=== PATIENT | male | born 1940 | race Caucasian/White ===

== ENCOUNTER 2017-06-21 06:14 | Day surgery (SDC) | payer MEDICARE ==
[2017-06-21] MEDS ORDERED: LIDOCAINE 2% MDV (20MG/ML) 20ML VIAL IV ONE ×2 (12:51→13:07)
[2017-06-21] MEDS ORDERED: PROPOFOL 10 MG/ML VIAL IV ONE (12:51)
[2017-06-21] MEDS ORDERED: TETRACAINE HCL 0.5% 15 ML OPTH BTL OPTH ONE (13:07)
[2017-06-21] MEDS ORDERED: LIDOCAINE 1% MPF 100MG/10ML STERILE-PAK AMPULE IV ONE (13:07)
[2017-06-21] MEDS ORDERED: NEOMYCIN/POLY./DEXAM OPTH OINT OPTH ONE (13:07)
[2017-06-21] MEDS ORDERED: TETRACAINE HCL 0.5% OPTH 2ML SOLU OPTH ONE (13:07)
[2017-06-21] MEDS ORDERED: EPINEPHRINE 1 MG/ML AMPUL SQ ONE (13:07)
[2017-06-21] MEDS ORDERED: CIPROFLOXACIN HCL 0.0015 GM, PHENYLEPHRINE HCL 0.05 GM, KETOROLAC TROMETHAMINE 0.000625 GM MC ONE ×5 (13:15)
--- NOTE | 2017-06-22 07:56 | OP NOTE CHAMES ---
DATE OF PROCEDURE: 06/21/2017. PREOPERATIVE DIAGNOSIS: Nuclear sclerotic cataract, right eye. POSTOPERATIVE DIAGNOSIS: Nuclear sclerotic cataract, right eye. OPERATION: Phacoemulsification of cataractous lens with implantation of intraocular lens. LENS IMPLANT USED: Cr Model PCB00 + 24.0 diopters. COMPLICATIONS: None. PROCEDURE IN DETAIL: Following a retrobulbar and facial block, the patient was prepped and draped in the usual fashion for eye surgery. A lid speculum was placed in the right eye after which a 2.4 mm tunnel wound was placed at the temporal limbus and dissected into clear cornea. A paracentesis was placed at 2 oclock hours to the left and right of the initial incision and the chamber deepened with Viscoelastic. The keratome was then used to enter the anterior chamber after which the continuous circular capsulorrhexis was accomplished without difficulty using a bent needle and a Utrata forceps. Hydrodissection and hydrodelineation of the lens was performed after which the nucleus of the lens was removed using the Phaco handpiece in the [id number] technique. The residual cortical material was irrigated and aspirated from the eye after which the bag and chamber were re-examined. The bag was re-inflated with Viscoelastic and the intraocular lens injected into the capsular bag where it centered well. The Viscoelastic was then copiously irrigated and aspirated from the eye after which the temporal tunnel wound and paracentesis were hydrated and the wounds were examined. They were noted to be watertight. The lid speculum was removed from the eye and the eye patched and shielded. The patient was transferred to the recovery room in satisfactory condition and given an appointment to be reexamined in the clinic later today or as directed by Dr. Suarez. Remington Suarez M.D. Date & Time JOB NUMBER: [id number] MTDD
== END 2017-06-21 08:35 | disposition home or self-care (01) ==
LOC: SUR 06:14
PROVIDERS: ATTEND Ophthalmology
DX: H25.11 Age-related nuclear cataract, right eye (principal); I10 Essential (primary) hypertension; I50.9 Heart failure, unspecified; E78.00 Pure hypercholesterolemia, unspecified; Z79.01 Long term (current) use of anticoagulants
CPT/HCPCS: J0171; J3490

== ENCOUNTER 2019-01-09 12:37 | Day surgery (SDC) | payer MEDICARE ==
[2019-01-09] MEDS ORDERED: FENTANYL PF 100MCG/2ML VIAL IV ONE (12:38)
[2019-01-09] MEDS ORDERED: LIDOCAINE 2% MDV (20MG/ML) 20ML VIAL IV ONE (12:38)
[2019-01-09] MEDS ORDERED: PROPOFOL 10 MG/ML VIAL IV ONE (12:38)
--- NOTE | 2019-01-10 08:50 | Operative Note ---
OPERATION: 1. ESOPHAGOGASTRODUODENOSCOPY with biopsy. 2. COLONOSCOPY with random biopsy. PREOPERATIVE DIAGNOSES: 1. Watson's. 2. Diarrhea. POSTOPERATIVE DIAGNOSES: 1. Short-segment Watson's. 2. Hiatal hernia. 3. Sigmoid diverticulosis. 4. Normal colon. 5. Otherwise rule out microscopic colitis. PROCEDURE: After informed consent was obtained from the patient, he was placed in the left lateral decubitus position in the endoscopy suite, sedated and monitored by the department of anesthesia. A well-lubricated [id number] gastroscope was placed in the posterior oropharynx under direct visualization and passed to the proximal esophagus. The endoscope was advanced through the proximal, mid, and distal esophagus. There was irregularity of the squamocolumnar border and a small hiatal hernia. The subdiaphragmatic stomach demonstrated normal distensibility, normal rugal folds. The body, antrum, pylorus, duodenal bulb and sweep were unremarkable. J-turn views of the proximal stomach were unremarkable other than a small hiatal hernia being noted. The endoscope was straightened. GE junction biopsies were obtained. No excessive bleeding was noted. The endoscope was removed from the patient with no new findings noted. Digital rectal exam was unremarkable. A well-lubricated [id number] colonoscope was inserted into the rectum and advanced to the cecum. Preparation quality was excellent. The cecum, cecal bulb, terminal ileum, ascending colon, transverse colon, and descending colon were unremarkable. Random biopsies were obtained to rule out microscopic colitis. There were moderate sigmoid diverticular changes. Forward and J-turn views of the rectum and anorectum were unremarkable. The endoscope was straightened, the rectal ampulla deflated, and the endoscope was removed. RECOMMENDATIONS: The patient should resume his medications and diet. We will await the results of tissue histology before further recommendations are made. As always, thank you for allowing me to participate in the healthcare of your patients. CC: SANDY Morrissey
== END 2019-01-09 15:12 | disposition home or self-care (01) ==
LOC: HOP 12:37
PROVIDERS: ATTEND Internal Medicine Gastroenterology
DX: R19.7 Diarrhea, unspecified (principal); K57.30 Diverticulosis of large intestine without perforation or abscess without bleeding; K22.70 Barrett's esophagus without dysplasia; K44.9 Diaphragmatic hernia without obstruction or gangrene; K31.89 Other diseases of stomach and duodenum; K21.0 Gastro-esophageal reflux disease with esophagitis; I10 Essential (primary) hypertension; E78.00 Pure hypercholesterolemia, unspecified